=== PATIENT | male | born 1985 | race Two or more races ===

== ENCOUNTER 2023-04-19 11:20 | Emergency (ER) | payer OTHER ==
[~2023-04-19] VITALS: Ht 162.6 cm; Wt 79.4 kg
[2023-04-19] MEDS ORDERED: FAMOtidine 10 MG/ML (4ML VIAL) IV STA (12:17)
[2023-04-19] MEDS ORDERED: ONDANSETRON HCL 2 MG/ML VIAL IV ONE (12:30)
[2023-04-19 13:08] LABS: HEMATOCRIT 47.2 % (39.0-48.0); HEMOGLOBIN 16.4 g/dL (13-16.00); MEAN CELL VOLUME 92.5 fL (80.0-100.00); MEAN CORPUSCULAR HEMOGLOBIN 32.1 pg (27.00-32.0); MEAN CORPUSCULAR HGB CONC 34.7 g/dl (32.0-36.0); PLATELET COUNT 213 K/uL (150-450); RED BLOOD COUNT 5.11 M/uL (4.00-6.00)
[2023-04-19 13:28] LABS: PH,URINE 5.5 (5.0-8.0); URINE APPEARANCE Clear; URINE BILIRRUBIN Negative (NEGATIVE); URINE BLOOD Small; URINE COLOR Yellow; URINE GLUCOSE Negative (NEGATIVE); URINE LEUKOCYTE Negative; URINE NITRATE Negative; URINE PROTEIN Negative (NEGATIVE); URINE UROBILINOGEN 0.2 E.U./dl
[2023-04-19 13:33] LABS: URINE WBC 2.4 uL (0.0-23.2)
[2023-04-19 13:35] LABS: URINE BACTERIA 3.7 uL (0.0-1933); URINE EPITHELIAL CELLS 1.3 uL (0.0-38.8); URINE RBC 0.4 uL (0.0-20.8)
[2023-04-19] MEDS ORDERED: 0.9 % SODIUM CHLORIDE 1,000 ML IV STA (14:18)
[2023-04-19 15:08] LABS: CALCIUM 9.2 mg/dL (8.5-10.1); CREATININE SERUM 0.79 mg/dL (0.70-1.30); GFR 109.77; POTASSIUM 3.74 mEq/L (3.5-5.1)
== END 2023-04-19 16:53 | disposition home or self-care (01) ==
LOC: ER 11:20
PROVIDERS: General Practice
DX: R10.13 Epigastric pain (principal); K29.70 Gastritis, unspecified, without bleeding